=== PATIENT | male | born 1980 | race Caucasian/White ===

== ENCOUNTER 2021-03-01 07:09 | Day surgery (SDCO) | payer OTHER ==
[~2021-03-01] VITALS: Ht 172.7 cm; Wt 84.6 kg
[~2021-03-01 07:09] MED LIST: 8 HOUR650 MG PO; IBUPROFEN800 MG PO
[2021-03-01 08:09] LABS: ALBUMIN 3.8 g/dL (3.4-5.0); BASOPHIL 0.2 % (0-2); BILIRUBIN - TOTAL 0.7 mg/dL (0.2-1.0); BUN/CREAT RATIO (CALC) 11.7 RATIO; CREATININE 0.94 mg/dL (0.67-1.17); EOSINOPHIL 0 % (0-5); GLOBULIN (CALCULATION) 4.1 g/dL; HCT 45.2 % (42.0-52.0); HGB 15.7 g/dl (13.2-18.0); LYMPHOCYTE 1.9 % (15-48); MAGNESIUM 1.7 mg/dL (1.8-2.4); MCHC 34.7 g/dL (32.0-36.0); MCV 89.3 fL (78.0-100.0); MONOCYTE 6.1 % (0-12); MPV 9.9 fL (6.0-9.5); NRBC 0; PLT 258 K/uL (150-400); POTASSIUM 4.7 mmol/L (3.5-5.1); RBC 5.06 M/uL (4.70-6.00); RDW 12.2 % (11.5-14.0); TOTAL PROTEIN 7.9 g/dL (6.4-8.2)
[2021-03-01 08:10] LABS: WBC 23.5 K/uL (4.0-10.5)
[2021-03-01 08:19] LABS: LACTIC ACID 2.1 mmol/L (0.4-1.9)
[2021-03-01 13:14] LABS: BILIRUBIN NEGATIVE (NEGATIVE); BLOOD NEGATIVE Ery/uL (NEGATIVE); CLARITY CLEAR (CLEAR); COLOR YELLOW (YELLOW); GLUCOSE (U) NORMAL (NORMAL); LEUKOCYTES NEGATIVE Leu/uL (NEGATIVE); NITRITE NEGATIVE (NEGATIVE); PROTEIN 1+ mg/dL (NEGATIVE); SPECIFIC GRAVITY 1.015 (1.001-1.030)
[2021-03-01 13:27] LABS: URINARY RBC RARE; URINARY WBC RARE
[2021-03-02 05:37] LABS: BASOPHIL 0.4 % (0-2); EOSINOPHIL 0.3 % (0-5); HCT 38.5 % (42.0-52.0); HGB 13.1 g/dl (13.2-18.0); LYMPHOCYTE 8.8 % (15-48); MCH 31.1 pg (25.0-31.0); MCV 91.4 fL (78.0-100.0); MONOCYTE 10.9 % (0-12); MPV 9.7 fL (6.0-9.5); NEUTROPHIL 79.3 % (41-80); NRBC 0; PLT 197 K/uL (150-400); RBC 4.21 M/uL (4.70-6.00); RDW 12.7 % (11.5-14.0); WBC 10.5 K/uL (4.0-10.5)
[2021-03-02 05:59] LABS: ALBUMIN 2.8 g/dL (3.4-5.0); BILIRUBIN - TOTAL 0.2 mg/dL (0.2-1.0); CREATININE 0.93 mg/dL (0.67-1.17); GLOBULIN (CALCULATION) 3.5 g/dL; MAGNESIUM 2.1 mg/dL (1.8-2.4); POTASSIUM 4.4 mmol/L (3.5-5.1); TOTAL PROTEIN 6.3 g/dL (6.4-8.2)
[2021-03-03] MEDS ORDERED: AUGMENTIN 875-1 EACH PO (13:06)
== END 2021-03-03 13:39 | disposition home or self-care (01) ==
LOC: FER 07:09 → FMS 09:57
PROVIDERS: Emergency Medicine; ADMIT Internal Medicine
DX: L03.115 Cellulitis of right lower limb (principal); L04.1 Acute lymphadenitis of trunk; I10 Essential (primary) hypertension; F17.210 Nicotine dependence, cigarettes, uncomplicated; Z20.822 Contact with and (suspected) exposure to COVID-19
CPT/HCPCS: 36415; 80053; 80202; 81001; 83605; 83690; 83735; 84145; 85025; 87040; 87070; 87077; 87186; 88305; 88341; 88342; G0378; J1170; J1885; J2405; J2543; J3370; J3475; J7030; J7050; Q9967; U0002

== ENCOUNTER 2021-09-23 14:53 | Inpatient (IN) | payer OTHER ==
[~2021-09-23] VITALS: Ht 177.8 cm; Wt 90.3 kg
[~2021-09-23 14:53] MED LIST changes: +AUGMENTIN 875-1 EACH PO
[2021-09-23 15:52] LABS: BASOPHIL 0.8 % (0-2); EOSINOPHIL 1.3 % (0-5); HCT 46.2 % (42.0-52.0); LYMPHOCYTE 17.3 % (15-48); MCH 30.5 pg (25.0-31.0); MCHC 32.5 g/dL (32.0-36.0); MCV 93.9 fL (78.0-100.0); MONOCYTE 5.8 % (0-12); MPV 9.6 fL (6.0-9.5); NEUTROPHIL 74.5 % (41-80); NRBC 0; PLT 326 K/uL (150-400); RBC 4.92 M/uL (4.70-6.00); RDW 14.2 % (11.5-14.0)
[2021-09-23 16:01] LABS: CORONAVIRUS 2019 SARS-COV-2 NEGATIVE (NEGATIVE); INFLUENZA A NAA NEGATIVE (NEGATIVE)
[2021-09-23 16:17] LABS: ALBUMIN 3.5 g/dL (3.4-5.0); BILIRUBIN - TOTAL 0.7 mg/dL (0.2-1.0); BUN/CREAT RATIO (CALC) 8.8 RATIO; CREATININE 1.14 mg/dL (0.67-1.17); GLOBULIN (CALCULATION) 3.2 g/dL; POTASSIUM 4.8 mmol/L (3.5-5.1); TOTAL PROTEIN 6.7 g/dL (6.4-8.2)
[2021-09-23 16:40] LABS: INR 1.18 (0.9-1.2); PROTHROMBIN TIME 14.4 SECONDS (11.8-13.4); PTT 29.6 SECONDS (24.4-34.7)
[2021-09-23 16:41] LABS: D-DIMER 0.54 ug/mLFEU (0.00-0.41); LACTIC ACID 1.8 mmol/L (0.4-1.9)
[2021-09-23 17:32] LABS: BILIRUBIN NEGATIVE (NEGATIVE); BLOOD NEGATIVE Ery/uL (NEGATIVE); CLARITY CLEAR (CLEAR); COLOR YELLOW (YELLOW); GLUCOSE (U) NORMAL (NORMAL); LEUKOCYTES NEGATIVE Leu/uL (NEGATIVE); NITRITE NEGATIVE (NEGATIVE); PROTEIN NEGATIVE (NEGATIVE); SPECIFIC GRAVITY 1.025 (1.001-1.030); UROBILINOGEN 0.2 mg/dL (0.2-1.0)
[2021-09-23 17:35] LABS: AMPHETAMINES NEGATIVE (NEGATIVE); BARBITURATES NEGATIVE (NEGATIVE); ECSTASY (MDMA) NEGATIVE (NEGATIVE); MARIJUANA (THC) NEGATIVE (NEGATIVE); METHADONE NEGATIVE (NEGATIVE); OPIATES NEGATIVE (NEGATIVE); OXYCODONE NEGATIVE (NEGATIVE)
[2021-09-24 02:51] LABS: CKMB 2.6 ng/mL (0.0-3.6)
[2021-09-24 08:38] LABS: BUN 14 mg/dL (7-18); BUN/CREAT RATIO (CALC) 12.2 RATIO; CHLORIDE 106 mmol/L (98-107); CO2 (BICARBONATE) 24 mmol/L (21-32); CREATININE 1.15 mg/dL (0.67-1.17); GLUCOSE 112 mg/dL (74-106); LDH 215 U/L (85-227); MAGNESIUM 2.3 mg/dL (1.8-2.4); POTASSIUM 4.7 mmol/L (3.5-5.1)
[2021-09-24 08:39] LABS: C-REACTIVE PROTEIN < 0.20 mg/dL (<=0.90)
[2021-09-25 06:01] LABS: BASOPHIL 0.6 % (0-2); EOSINOPHIL 1.6 % (0-5); HCT 41.5 % (42.0-52.0); HGB 13.7 g/dl (13.2-18.0); LYMPHOCYTE 22.6 % (15-48); MCH 30.3 pg (25.0-31.0); MCV 91.8 fL (78.0-100.0); MONOCYTE 9.1 % (0-12); MPV 9.4 fL (6.0-9.5); NEUTROPHIL 65.7 % (41-80); NRBC 0; PLT 274 K/uL (150-400); RBC 4.52 M/uL (4.70-6.00); RDW 13.7 % (11.5-14.0); WBC 8.3 K/uL (4.0-10.5)
[2021-09-25 06:24] LABS: BUN/CREAT RATIO (CALC) 14.9 RATIO; CREATININE 1.21 mg/dL (0.67-1.17); MAGNESIUM 2.2 mg/dL (1.8-2.4); POTASSIUM 3.8 mmol/L (3.5-5.1)
[2021-09-26 06:30] LABS: BASOPHIL 0.6 % (0-2); EOSINOPHIL 2.3 % (0-5); HCT 43.1 % (42.0-52.0); HGB 14.1 g/dl (13.2-18.0); MCH 30.2 pg (25.0-31.0); MCHC 32.7 g/dL (32.0-36.0); MCV 92.3 fL (78.0-100.0); MONOCYTE 9.1 % (0-12); NEUTROPHIL 61.8 % (41-80); NRBC 0; PLT 297 K/uL (150-400); RBC 4.67 M/uL (4.70-6.00); RDW 13.6 % (11.5-14.0); WBC 8.3 K/uL (4.0-10.5)
[2021-09-26 06:54] LABS: BUN/CREAT RATIO (CALC) 19.7 RATIO; CREATININE 1.22 mg/dL (0.67-1.17); MAGNESIUM 2.3 mg/dL (1.8-2.4); POTASSIUM 4.4 mmol/L (3.5-5.1)
[2021-09-27] MEDS ORDERED: ASPIRIN EC81 MG PO (08:33)
[2021-09-27] MEDS ORDERED: TOPROL XL 25MG25 MG PO (08:33)
[2021-09-27] MEDS ORDERED: KLOR-CON M2020 MEQ PO (08:33)
[2021-09-27] MEDS ORDERED: COZAAR50 MG PO (08:33)
[2021-09-27] MEDS ORDERED: LASIX40 MG PO (08:34)
--- NOTE | 2021-09-27 14:02 | NUR ---
09/27/21 Mr. Guy was transferred to [facility] prior to social assessment.
== END 2021-09-27 09:56 | disposition other institution (70) | DRG 280 ==
LOC: FER 14:53 → FTCU 23:47 → FMS 09-25 08:33 → FTCU 09-25 08:33 → FMS 09-25 13:48
PROVIDERS: Internal Medicine Cardiovascular Disease; Nurse Practitioner; Nurse Practitioner Family; ADMIT Internal Medicine
PROC: B24BZZZ Ultrasonography of Heart with Aorta (ICD-10-PCS; principal; 2021-09-24)
DX: I13.0 Hypertensive heart and chronic kidney disease with heart failure and stage 1 through stage 4 chronic kidney disease, or unspecified chronic kidney disease (principal); I50.21 Acute systolic (congestive) heart failure; I21.A1 Myocardial infarction type 2; I25.5 Ischemic cardiomyopathy; N18.2 Chronic kidney disease, stage 2 (mild); F15.10 Other stimulant abuse, uncomplicated; Z20.822 Contact with and (suspected) exposure to COVID-19; I16.0 Hypertensive urgency; F17.210 Nicotine dependence, cigarettes, uncomplicated; Z88.2 Allergy status to sulfonamides; Z82.49 Family history of ischemic heart disease and other diseases of the circulatory system; Z98.890 Other specified postprocedural states
CPT/HCPCS: 36415; 71045; 71275; 80048; 80053; 80305; 81003; 82550; 82553; 82728; 83605; 83615; 83735; 83880; 84145; 84484; 85025; 85379; 85610; 85730; 86140; 87040; 93005; 94640; J0456; J0696; J1650; J1940; J2405; J7030; J7050; Q9967; U0002